=== PATIENT | female | born 1955 | race Two or more races ===

== ENCOUNTER 2017-08-11 10:05 | Outpatient (CLI) | payer OTHER ==
[~2017-08-11 10:05] MED LIST: DOXYCYCLINE HY100 MG PO; TYLENOL-CODEINE1 TAB PO
== END 2017-08-11 17:00 | disposition home or self-care (01) ==
LOC: TOM 10:05
DX: M51.17 Intervertebral disc disorders with radiculopathy, lumbosacral region (principal); M54.5 Low back pain